=== PATIENT | male | born 1945 | race Caucasian/White ===

== ENCOUNTER 2020-11-04 16:03 | Observation (INO) | payer OTHER, SELFPAY ==
[2020-11-04] VITALS (49 sets, daily range): BP systolic 118–155; BP diastolic 63–111; PULSE 81–89; RESP 16–23; TEMP 36.6; O2SAT 91–99
--- NOTE | ~2020-11-04 | XR_ITS ---
EXAMINATION: XR chest 2V DATE: 11/04/2020 16:28 INDICATION: 2 days of left-sided chest pain TECHNIQUE: frontal and lateral views of the chest were obtained. COMPARISON: None FINDINGS: Mild elevation of the right hemidiaphragm. Subtle patchy airspace opacity in the right midlung zone a nd at the lingula. Calcified right lower lobe nodule consistent with old granulomatous disease. No pl eural effusion or pneumothorax. Cardiomegaly with coronary artery stenting. There are bridging osteop hytes at multiple levels in the spine, consistent with diffuse idiopathic skeletal hyperostosis (DISH ). IMPRESSION: 1. Mild opacities at the lingula and right midlung zone which could represent atelectasis or pneumoni a. 2. Cardiomegaly with likely coronary artery stenting. Reviewed, dictated and finalized at location A. IMPRESSION: 1. Mild opacities at the lingula and right midlung zone which could represent a telectasis or pneumonia. 2. Cardiomegaly with likely coronary artery stenting.
--- NOTE | ~2020-11-04 | US_ITS ---
EXAMINATION: US abdomen limited DATE: 11/05/2020 10:00 INDICATION: Epigastric abdominal pain TECHNIQUE: Multiple grayscale and Doppler ultrasound images of the abdomen were obtained. COMPARISON: CT from yesterday FINDINGS: Bowel gas obscures visualization of the pancreas. The liver is normal with normal echogenic ity and echotexture. No surface nodularity. Normal hepatopetal flow in the main portal vein. The gall bladder is normal with no abnormal wall thickening, pericholecystic fluid or stones. The common bile duct is not demonstrated but was normal on the comparison CT. There was no sonographic Zimmerman sign. IMPRESSION: 1. Normal sonographic study of the gallbladder. Reviewed, dictated and finalized at location B.
--- NOTE | ~2020-11-04 | CT_ITS ---
EXAMINATION: CT abdomen pelvis wo con DATE: 11/04/2020 21:24 INDICATION: Epigastric pain. Leukocytosis. TECHNIQUE: Computed tomography (CT) of the abdomen and pelvis was performed without intravenous contr ast. Automated exposure control and iterative reconstruction technique were employed. The dose-length product was 1254.02 mGy-cm. COMPARISON: None FINDINGS: Calcified right lower lobe nodule consistent with old granulomatous disease. Mild bronchiectatic muñoz ges and mild atelectasis in bilateral lower lungs. No pleural effusion. Heart size is normal. Atheros clerotic coronary artery calcifications. Small pericardial effusion. A few calcified lower mediastina l lymph nodes consistent with old granulomatous disease. Mild diffuse hepatic steatosis with focal sp aring along the gallbladder fossa. Gallbladder, spleen, pancreas, bilateral adrenal glands and right kidney are normal. 1.9 cm exophytic left renal cyst. Bladder is normal. Mild prostatomegaly. There ar e few sigmoid diverticula without adjacent inflammatory change to suggest diverticulitis. Small bowel and appendix are normal. No free intraperitoneal gas or fluid. No pathologically enlarged abdominal or pelvic lymphadenopathy. There is calcified atherosclerosis of the aorta and many of the other irwin brandy. There are bridging osteophytes at multiple levels in the lower thoracic spine, consistent with diffuse idiopathic skeletal hyperostosis (DISH). Mild lumbar dextrocurvature with mild spondylosis. IMPRESSION: 1. Small pericardial effusion. 2. Diffuse hepatic steatosis. 3. Mild bronchiectatic changes and mild atelectasis at the bilateral lower lungs. Reviewed, dictated and finalized at location A. IMPRESSION: 1. Small pericardial effusion. 2. Diffuse hepatic steatosis. 3. Mild bronchiectatic changes and mild atelectasis at the bilateral lower lung s.
--- NOTE | 2020-11-04 16:11 | ECG_ITS ---
Measurements Intervals [place] Rate: 80 P: 47 [place]: 205 QRS: -50 QRSD: 154 T: 38 QT: 379 QTc: 438 Interpretive Statements SINUS RHYTHM LEFT AXIS DEVIATION BORDERLINE AV CONDUCTION DELAY IVCD, CONSIDER ATYPICAL LBBB ABNORMAL ECG Electronically Signed On 11-04-2020 16:50:06 CDT by Adam Escalera D.O.
[2020-11-04 16:31] LABS: Basophils Absolute Auto 0.1 K/mm3 (0.0-0.1); Basophils Percent Auto 0.5 % (0.2-1.2); Eosinophils Absolute Auto 0.4 K/mm3 (0-0.3); Hematocrit 40.6 % (42.0-52.0); Hemoglobin 12.6 g/dL (14.0-18.0); Immature Granulocyte Absolute 0.13 K/mm3 (0.00-0.031); Immature Granulocyte Percent A 0.7 % (0-0.5); Lymphocytes Absolute Auto 2.06 K/mm3 (0.9-3.2); Lymphocytes Percent Auto 10.8 % (18.3-44.2); Mean Corpuscular Hemoglobin 28.3 pg (26-34); Mean Platelet Volume 11.7 fl (7.4-10.4); Monocytes Absolute Auto 1.2 K/mm3 (0.1-0.6); Neutrophils Absolute Auto 15.2 K/mm3 (1.3-6.7); Platelet Count Result 389 k/mm3 (150-375); Red Blood Count 4.46 M/mm3 (4.6-6.20); Red Cell Distribution Width 14.6 % (11.5-14.5); White Blood Count 19.1 K/mm3 (4.5-10.0)
[2020-11-04 17:28] LABS: INR 0.9; Prothrombin Time 12.5 Seconds (11.1-14.7)
[2020-11-04 17:29] LABS: Anion Gap 11 mmol/L (8-16); Blood Urea Nitrogen 43 mg/dL (9-20); Calcium 9.3 mg/dL (8.4-10.2); Carbon Dioxide 27 mmol/L (22-30); Chloride 96 mmol/L (98-107); Estimated CRCL calculation 32 ml/min; Estimated Glomerular Filt Rate 31; Glucose 308 mg/dL (65-110); Partial Thromboplastin Time 35.8 SECONDS (22.3-36.8); Potassium 5.2 mmol/L (3.4-5.0); Sodium 134 mmol/L (137-145)
[2020-11-04 17:41] LABS: Troponin I < 0.012 ng/mL (0.000-0.034)
--- NOTE | 2020-11-04 18:22 | PC.NURSE ---
Called lab and spoke to Marty about adding Hepatic Lip 1820
[2020-11-04 18:32] LABS: Alanine Aminotransferase 35 U/L (4-50); Albumin Level 4.3 g/dL (3.5-5.1); Alkaline Phosphatase 97 U/L (38-126); Aspartate Amino Transferase 53 U/L (17-59); Bilirubin,Total 0.3 mg/dL (0.2-1.3); Lipase 99 U/L (23-300)
--- NOTE | 2020-11-04 18:44 | ED.CHESTPAIN ---
HPI - Chest Pain General Chief Complaint: Chest Pain <Adiel Martin MD - Last Filed: 11/04/20 21:27> Stated Complaint: CP <Adiel Martin MD - Last Filed: 11/04/20 21:27> Time Seen by Provider: 11/04/20 16:29 <Adiel Martin MD - Last Filed: 11/04/20 21:27> Source: patient <Adiel Martin MD - Last Filed: 11/04/20 21:27> Mode of arrival: ambulatory <Adiel Martin MD - Last Filed: 11/04/20 21:27> Limitations: no limitations <Adiel Martin MD - Last Filed: 11/04/20 21:27> History of Present Illness HPI narrative: 75-year-old male Patient does not have any lung disease that he knows of but says he has a history of fluid around his heart for which she is followed [facility] all of his medical care He is here today because of a 2-day history of of chest discomfort He notes the pain has been relatively constant since the onset yesterday morning, is in his lower chest, is worse and somewhat hinders him from taking deep breaths, and not particularly accompanied by any exertional worsening shortness of breath fever or cough He also does not complain of any GI symptoms such as nausea or vomiting <Adiel Martin MD - Last Filed: 11/04/20 21:27> Related Data Home Medications: Home Medications Medication Instructions Recorded Confirmed aspirin 81 mg PO DAILY 11/05/20 11/05/20 atorvastatin 80 mg PO DAILY 11/05/20 11/05/20 carvedilol 25 mg PO BID 11/05/20 11/05/20 cetirizine 10 mg PO DAILY 11/05/20 11/05/20 cholecalciferol (vitamin D3) 50 mcg PO DAILY 11/05/20 11/05/20 eplerenone 25 mg PO DAILY 11/05/20 11/05/20 furosemide 40 mg PO BID 11/05/20 11/05/20 insulin aspart U-100 [Novolog 5 unit SUBCUT TIDWM 11/05/20 11/05/20 U-100 Insulin aspart] insulin glargine 30 unit SUBCUT HS 11/05/20 11/05/20 losartan 100 mg PO DAILY 11/05/20 11/05/20 meloxicam 15 mg PO DAILY 11/05/20 11/05/20 mirtazapine 7.5 mg PO HS 11/05/20 11/05/20 multivit with min-folic acid 1 tablet PO DAILY 11/05/20 11/05/20 [Adult One Daily Multivitamin] nitroglycerin 0.4 mg SUBLINGUAL Q5M PRN 11/05/20 11/05/20 pantoprazole 40 mg PO QAM 11/05/20 11/05/20 ramelteon 8 mg PO HS 11/05/20 11/05/20 sertraline 100 mg PO DAILY 11/05/20 11/05/20 trospium 20 mg PO BID 11/05/20 11/05/20 zaleplon 15 mg PO HS 11/05/20 11/05/20 <Adiel Martin MD - Last Filed: 11/04/20 21:27> Allergies/Adverse Reactions: Allergies Allergy/AdvReac Type Severity Reaction Status Date / Time No Known Allergies Allergy Verified 11/04/20 16:13 <Adiel Martin MD - Last Filed: 11/04/20 21:27> Review of Systems Review of Systems: All systems reviewed & are unremarkable except as noted in HPI and below <Adiel Martin MD - Last Filed: 11/04/20 21:27> Constitutional: Constitutional: Reports no additional constitutional complaints, Denies chills, Denies fever(s) and Denies headache(s) <Adiel Martin MD - Last Filed: 11/04/20 21:27> Eyes: Eyes: Reports no additional eye complaints and Denies change in vision <Adiel Martin MD - Last Filed: 11/04/20 21:27> ENT: Denies headache(s) and Denies sore throat <Adiel Martin MD - Last Filed: 11/04/20 21:27> Cardiovascular: Cardiovascular: Reports chest pain, Denies radiating jaw, neck or arm pain and Denies dyspnea <Adiel Martin MD - Last Filed: 11/04/20 21:27> Respiratory: Respiratory: Denies cough and Reports dyspnea <Adiel Martin MD - Last Filed: 11/04/20 21:27> Gastrointestinal: Gastrointestinal: Denies abdominal pain, Denies diarrhea and Denies vomiting <Adiel Martin MD - Last Filed: 11/04/20 21:27> Genitourinary: Genitourinary: Denies dysuria and Denies urinary frequency <Adiel Martin MD - Last Filed: 11/04/20 21:27> Musculoskeletal: Musculoskeletal: Denies deformity, Denies arthralgias, Denies joint swelling and Denies numbness <Adiel Martin MD - Last Filed: 11/04/20 21:27> Integumentary/Breasts: Skin/Breast: Denies rash and De
--- NOTE | 2020-11-04 19:18 | PC.NURSE ---
assumed care at this time. Report from Vonnie FIGUEROA
[2020-11-04 19:57] LABS: Troponin I < 0.012 ng/mL (0.000-0.034)
[2020-11-04 21:18] LABS: Lactic Acid Reflex 1.2 mmol/L (0.7-2.1)
[2020-11-04 22:38] LABS: Add Urine Microscopic? YES; Appearance Urine Clear (Clear); Bilirubin Urine Negative (Negative); Blood Urine Negative (Negative); Color Urine Yellow (Yellow); Glucose Urine UA 1+ mg/dL (Negative); Ketones Urine Negative (Negative); Leukocyte Esterase Ur Negative LEU/UL (Negative); Mucus Urine Rare /lpf; Nitrate Urine Negative (Negative); Protein Urine Negative (Negative); RBC Urine 0-2 /hpf (0-2); Specific Grav Ur 1.018 (1.001-1.035); Urobilinogen Urine Negative mg/dL (<2.0); WBC Urine 0-3 /hpf
[2020-11-04 22:59] LABS: Troponin I < 0.012 ng/mL (0.000-0.034)
[2020-11-04 23:24] LABS: Glucose Point of Care 239 mg/dl (65-105)
[2020-11-05] VITALS (20 sets, daily range): BP systolic 103–148; BP diastolic 48–77; PULSE 72–88; RESP 12–20; TEMP 36.6–37.6; O2SAT 92–100; BMI 34.9
--- NOTE | 2020-11-05 00:40 | ADMGEN ---
This patient, Rambo Gonzales, was admitted to IMU Room 200-01. Patient/family oriented to hospital policies and general routines including ID bracelet, bed and alarms, visiting hours, pain management, procedures, bathroom and other care routines, personal items, smoking policy, room service/diet, and visiting hours. Information on how to activate the Rapid Response Team has been discussed. Patient/Family are encouraged to report perceived risks to care and to ask questions if they do not understand what they are told or what they should do.
--- NOTE | 2020-11-05 01:18 | PM.IMHP ---
H&P: HPI History of Present Illness Date/Time: 11/05/20 01:18 Chief Complaint: PAIN WITH DEEP INSPIRATION Narrative: THIS IS A 75-YEAR-OLD MALE WITH KNOWN SIGNIFICANT PAST MEDICAL HISTORY HOWEVER [facility] AND STATES THAT HE HAD SOME FLUID AROUND HIS HEART PRESUMABLY PERICARDIAL EFFUSION ALSO STATES THAT HE HAS MS. HE IS NOT ON ANY MEDICATIONS AT HOME. HE COMES IN TODAY DUE TO PAIN WITH DEEP INSPIRATION THE PAIN IS CONSTANT FOR THE LAST 2 DAYS OR SO NONRADIATING NOT RELATED TO FOOD INTAKE NO SHORTNESS OF BREATH OR COUGH OR SPUTUM PRODUCTION NO FEVERS NO RIGORS NO CHILLS NO PND OR ORTHOPNEA. PATIENT STATES THAT HE HAS HAD ORANGE AGENT EXPOSURE. NO LEG SWELLING NO CHEST PAIN ON EXERTION. NO LIGHTHEADEDNESS DIZZINESS NEAR-SYNCOPE OR SYNCOPE. NO DYSPEPSIA NO NAUSEA NO VOMITING NO ABDOMINAL PAIN NO DIARRHEA. PRELIMINARY WORKUP HAS BEEN SIGNIFICANT FOR WBC COUNT OF 19,000 A CHEST X-RAY WITH INFILTRATES. Review of Systems Review of Systems: PAIN WITH DEEP INSPIRATION Constitutional: Constitutional: Denies chills, Denies fatigue, Denies fever(s), Denies lethargy and Denies malaise Eyes: Eyes: Denies change in vision ENT: Denies dysphagia, Denies nasal congestion, Denies nasal discharge, Denies nasal obstruction and Denies odynophagia Cardiovascular: Cardiovascular: Denies chest pain, Denies chest pain at rest, Denies irregular heart rhythm, Denies claudication, Denies leg edema, Denies lightheadedness, Denies radiating jaw, neck or arm pain, Denies palpitations, Denies dyspnea, Denies orthopnea and Denies paroxysmal nocturnal dyspnea Respiratory: Respiratory: Denies cough, Reports pain on inspiration and Denies dyspnea Gastrointestinal: Gastrointestinal: Denies abdominal pain, Denies diarrhea, Denies nausea and Denies vomiting Genitourinary: Genitourinary: Reports no additional male genitourinary complaints Musculoskeletal: Musculoskeletal: Reports no additional musculoskeletal complaints Integumentary/Breasts: Skin/Breast: Reports system reviewed and no additional complaints, except as docu Neurologic: Reports system reviewed and no additional complaints, except as documented Psychiatric: Psychiatric: Reports no additional psychiatric complaints Endocrine: Endocrine: Reports no additional endocrine complaints Hematologic/Lymphatic: Hematologic/Lymphatic: Reports no additional hematologic/lymphatic complaints Allergic/Immunologic: Allergic/Immunologic: Reports no additional allergic/immunologic complaints [facility] Family History Family History (Updated 11/05/20 @ 00:59 by Rhona Whelan RN) Grandparent No problems noted. 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) Meds Home Medications and Allergies Home Medications Medication Instructions Recorded Confirmed Type Unable to Obtain Home Medications 11/04/20 11/04/20 History Allergies Allergy/AdvReac Type Severity Reaction Status Date / Time No Known Allergies Allergy Verified 11/04/20 16:13 Vital Signs Vital Signs - 24 hr 11/04/20 16:05 11/04/20 17:11 11/04/20 17:15 Temperature 97.9 F Pulse Rate 81 Respiratory Rate 22 H Blood Pressure 131/75 Pulse Oximetry 98 97 97 11/04/20 17:32 11/04/20 17:33 11/04/20 17:45 Temperature Pulse Rate Respiratory Rate Blood Pressure 155/78 H Pulse Oximetry 96 99 97 11/04/20 17:46 11/04/20 18:00 11/04/20 18:01 Temperature Pulse Rate 81 Respiratory Rate 18 Blood Pressure 132/72 118/69 Pulse Oximetry 98 98 97 11/04/20 18:26 11/04/20 18:30 11/04/20
[2020-11-05] MEDS: ALBUTEROL SULFATE NEB 2.5 MG/0.5 ML INH (01:44)
--- NOTE | 2020-11-05 01:56 | PC.NURSE ---
Consent for release of records signed per patient and [facility] to [facility].
[2020-11-05 03:38] LABS: Basophils Absolute Auto 0.1 K/mm3 (0.0-0.1); Basophils Percent Auto 0.6 % (0.2-1.2); Eosinophils Absolute Auto 0.4 K/mm3 (0-0.3); Eosinophils Percent Auto 2.3 % (0-4.4); Hematocrit 41.4 % (42.0-52.0); Hemoglobin 12.7 g/dL (14.0-18.0); Immature Granulocyte Absolute 0.13 K/mm3 (0.00-0.031); Immature Granulocyte Percent A 0.8 % (0-0.5); Lymphocytes Percent Auto 15.6 % (18.3-44.2); Mean Corpuscular HGB Conc 30.7 g/dl (32-36); Mean Corpuscular Hemoglobin 28.1 pg (26-34); Mean Corpuscular Volume 91.6 fl (80-100); Monocytes Absolute Auto 1.3 K/mm3 (0.1-0.6); Monocytes Percent Auto 7.4 % (2.6-8.5); Neutrophils Absolute Auto 12.7 K/mm3 (1.3-6.7); Neutrophils Percent Auto 73.3 % (45.5-73.1); Platelet Count Result 388 k/mm3 (150-375); Red Blood Count 4.52 M/mm3 (4.6-6.20); Red Cell Distribution Width 14.2 % (11.5-14.5); White Blood Count 17.3 K/mm3 (4.5-10.0)
[2020-11-05 03:55] LABS: Alanine Aminotransferase 30 U/L (4-50); Alkaline Phosphatase 99 U/L (38-126); Anion Gap 12 mmol/L (8-16); Aspartate Amino Transferase 36 U/L (17-59); Bilirubin,Total 0.4 mg/dL (0.2-1.3); Blood Urea Nitrogen 37 mg/dL (9-20); Calcium 9.2 mg/dL (8.4-10.2); Carbon Dioxide 25 mmol/L (22-30); Chloride 97 mmol/L (98-107); Estimated CRCL calculation 38 ml/min; Estimated Glomerular Filt Rate 40; Glucose 223 mg/dL (65-110); Potassium 4.4 mmol/L (3.4-5.0); Sodium 134 mmol/L (137-145)
--- NOTE | 2020-11-05 04:10 | PCRCNOTE ---
Window of time for administration has passed. See next scheduled administration.
[2020-11-05 08:00] LABS: Glucose Point of Care 263 mg/dl (65-105)
[2020-11-05] MEDS: ALBUTEROL SULFATE NEB 2.5 MG/0.5 ML INH INHALATION ×2 (09:34→14:06)
[2020-11-05] MEDS: CHOLECALCIFEROL 1,000 UNITS TABLET 2000 UNITS PO (09:53)
[2020-11-05] MEDS: ATORVASTATIN 40 MG TABLET 80 MG PO (09:53)
[2020-11-05] MEDS: ENOXAPARIN 40 MG/0.4 ML SYRINGE SUB-Q (09:53)
[2020-11-05] MEDS: LOSARTAN POTASSIUM 100 MG TABLET PO (09:53)
[2020-11-05] MEDS: THERAPEUTIC MULTIVITAMINS/MINERALS TAB (*BKC) 1 TABLET PO (09:53)
[2020-11-05] MEDS: FUROSEMIDE 40 MG TABLET PO ×2 (09:53→16:02)
[2020-11-05] MEDS: PANTOPRAZOLE 40 MG TABLET PO (09:54)
[2020-11-05] MEDS: LORATADINE 10 MG TABLET PO (09:54)
[2020-11-05] MEDS: carvediloL 25 MG TABLET PO ×2 (09:54→16:02)
[2020-11-05] MEDS: MELOXICAM 7.5 MG TABLET 15 MG PO (09:54)
[2020-11-05] MEDS: SERTRALINE HCL 50 MG TABLET 100 MG PO (09:54)
[2020-11-05] MEDS: ASPIRIN 81 MG CHEWABLE TABLET PO (09:56)
[2020-11-05] MEDS: INSULIN ASPART (*BKC) 100 UNITS/ML SUB-Q ×4 (09:57→15:57)
[2020-11-05 12:39] LABS: Glucose Point of Care 351 mg/dl (65-105)
--- NOTE | 2020-11-05 13:34 | PM.IMPN ---
Progress Note: A&P Assessment and Plan (1) Community acquired pneumonia: Qualifiers: Laterality: right Lung location: middle lobe of lung Qualified Code(s): J18.9 - Pneumonia, unspecified organism Code(s): J18.9 - Pneumonia, unspecified organism Status: Acute Assessment and Plan: -infiltrates on chest x-ray -antibiotics: Rocephin, azithromycin -Zofran for nausea -for atelectasis will have incentive spirometer (2) Chest pain: Qualifiers: Chest pain type: precordial pain Qualified Code(s): R07.2 - Precordial pain Code(s): R07.9 - Chest pain, unspecified Status: Acute Assessment and Plan: -appears to have resolved spontaneously, stopping morphine and nitroglycerin. Troponins x3 negative, no EKG changes. EKG normal sinus rhythm -nonspecific abdominal symptoms which have resolved, negative gallbladder ultrasound -CT abdomen showed small pericardial effusion and fatty liver with atelectatic changes in bilateral lower lungs (3) Pericardial effusion: Code(s): I31.3 - Pericardial effusion (noninflammatory) Status: Acute Assessment and Plan: -chronic stable pericardial effusion, EKG did not appear to be pericarditis -Continue home meloxicam (4) Acute kidney injury: Code(s): N17.9 - Acute kidney failure, unspecified Status: Acute Assessment and Plan: Elevated creatinine 1.7, will follow-up trend, may be prerenal at this time (5) Type 2 diabetes mellitus with hyperglycemia: Code(s): E11.65 - Type 2 diabetes mellitus with hyperglycemia Status: Acute Assessment and Plan: -diabetic diet -glargine 30 units q.h.s., aspart 5 units a.c. sliding scale insulin, hypoglycemia protocol, Accu-Cheks a.c. HS Additional Plan # other chronic conditions -can hold home sleep aids -depression: Continue Zoloft, Remeron -claritin -hypertension: Cozaar Diet: Diabetic diet DVT prophylaxis: Lovenox GI prophylaxis: Protonix Code status: Do not resuscitate Disposition: Transfer to Medical floor, home in 1-2 days Time Spent With Patient Time with patient: 25 - 35 minutes Subjective Date/time seen: 11/05/20 13:34 patient examined. With significant leukocytosis and chest infiltrates on x-ray he has been treated for pneumonia. This is despite being afebrile and no sputum production. He does not have many complaints and is very nonspecific. At this time this may be just a pneumonia which is how we will treat it. With his history of pericardial effusion he was brought to the IMU for further evaluation. His troponins have been negative and his symptoms are improving significantly. No EKG changes for pericarditis, appears to be normal sinus rhythm. Patient will be transferred to medical floor for continue management of his pneumonia. He denies fever, chills, nausea, vomiting, diarrhea, chest pain, abdominal pain. Review of Systems Review of Systems: All systems reviewed & are unremarkable except as noted in HPI and below Exam Narrative: - GENERAL: Well-nourished pleasant elderly man in no acute distress. - EYES: EOMI. Anicteric. - HENT: Moist mucous membranes. - LUNGS: Clear to auscultation bilaterally, no wheezing, rhonchi, or rales. - CARDIOVASCULAR: Regular rate and rhythm. No murmur. No JVD. - ABDOMEN: Soft, non-tender and non-distended. No palpable masses. - EXTREMITIES: No edema. Peripheral pulses 2+. Non-tender. - NEUROLOGIC: No focal neurological deficits. CN II-XII grossly intact. - PSYCHIATRIC: Awake, Alert and oriented x 3. Appropriate mood and affect. - SKIN: No rashes or lesions. Warm. - LYMPH: No cervical lymphadenopathy. Objective Data Vital Signs Vital Signs: Vital Signs - 24 hr 11/04/20 16:05 11/04/20 17:11 11/04/20 17:15 Temperature 36.6 C Pulse Rate 81 Respiratory Rate 22 H Blood Pressure 131/75 Pulse Oximetry 98 97 97 11/04/20 17:32 11/04/20 17:33 11/04/20 17:45 Temperature Puls
[2020-11-05 17:29] LABS: Glucose Point of Care 328 mg/dl (65-105)
--- NOTE | 2020-11-05 17:48 | PC.NURSE ---
This patient, Rambo Wood, was received from IMU on 11/05/20 at 1735. Report received from Nhung FIGUEROA Patient/family oriented to unit policies and routines
--- NOTE | 2020-11-05 18:31 | PC.NURSE ---
This patient, Rambo Wood, was transferred to [facility] on 11/05/20 at 1730. Personal belongings sent with patient. Report given to CAROLINA Scott. Appropriate documentation sent with patient.
[2020-11-05] MEDS: MIRTAZAPINE 7.5 MG TABLET PO (20:58)
[2020-11-05] MEDS: INSULIN GLARGINE (*BKC) 100 UNITS/ML 30 UNITS SUB-Q (20:58)
[2020-11-05 21:32] LABS: Glucose Point of Care 316 mg/dl (65-105)
[2020-11-06] VITALS (9 sets, daily range): BP systolic 110–134; BP diastolic 56–71; PULSE 70–84; RESP 18–20; TEMP 36.6–37.1; O2SAT 92–97
[2020-11-06] MEDS: ALBUTEROL SULFATE NEB 2.5 MG/0.5 ML INH INHALATION ×3 (02:20→15:24)
[2020-11-06 05:37] LABS: Hemoglobin 11.7 g/dL (14.0-18.0); Mean Corpuscular HGB Conc 30.8 g/dl (32-36); Mean Corpuscular Hemoglobin 28.5 pg (26-34); Mean Corpuscular Volume 92.5 fl (80-100); Mean Platelet Volume 10.6 fl (7.4-10.4); Platelet Count Result 339 k/mm3 (150-375); Red Blood Count 4.11 M/mm3 (4.6-6.20); Red Cell Distribution Width 14.3 % (11.5-14.5); White Blood Count 14.7 K/mm3 (4.5-10.0)
[2020-11-06 05:49] LABS: Anion Gap 8 mmol/L (8-16); Blood Urea Nitrogen 43 mg/dL (9-20); Calcium 8.8 mg/dL (8.4-10.2); Carbon Dioxide 26 mmol/L (22-30); Chloride 101 mmol/L (98-107); Estimated CRCL calculation 36 ml/min; Estimated Glomerular Filt Rate 37; Glucose 322 mg/dL (65-110); Potassium 4.7 mmol/L (3.4-5.0); Sodium 135 mmol/L (137-145)
[2020-11-06 09:03] LABS: Glucose Point of Care 281 mg/dl (65-105)
[2020-11-06] MEDS: ATORVASTATIN 40 MG TABLET 80 MG PO (09:06)
[2020-11-06] MEDS: MELOXICAM 7.5 MG TABLET 15 MG PO (09:06)
[2020-11-06] MEDS: SERTRALINE HCL 50 MG TABLET 100 MG PO (09:06)
[2020-11-06] MEDS: THERAPEUTIC MULTIVITAMINS/MINERALS TAB (*BKC) 1 TABLET PO (09:06)
[2020-11-06] MEDS: CHOLECALCIFEROL 1,000 UNITS TABLET 2000 UNITS PO (09:07)
[2020-11-06] MEDS: carvediloL 25 MG TABLET PO (09:07)
[2020-11-06] MEDS: FUROSEMIDE 40 MG TABLET PO (09:07)
[2020-11-06] MEDS: PANTOPRAZOLE 40 MG TABLET PO (09:07)
[2020-11-06] MEDS: LOSARTAN POTASSIUM 100 MG TABLET PO (09:07)
[2020-11-06] MEDS: LORATADINE 10 MG TABLET PO (09:07)
[2020-11-06] MEDS: ENOXAPARIN 40 MG/0.4 ML SYRINGE SUB-Q (09:07)
[2020-11-06] MEDS: INSULIN ASPART (*BKC) 100 UNITS/ML SUB-Q ×2 (09:08→13:44)
[2020-11-06 09:09] LABS: Erythrocyte Sedimentation Rate 83 mm/hr (0-20)
[2020-11-06] MEDS: ASPIRIN 81 MG CHEWABLE TABLET PO (12:48)
[2020-11-06 13:38] LABS: Glucose Point of Care 275 mg/dl (65-105)
--- NOTE | 2020-11-06 15:53 | PM.DS ---
DS: Admitting Diagnosis Admitting Diagnosis Community-acquired pneumonia DS: Discharge Diagnosis Discharge Diagnosis (1) Type 2 diabetes mellitus with hyperglycemia: Qualifiers: Diabetes mellitus jail insulin use: unspecified jail insulin use status Qualified Code(s): E11.65 - Type 2 diabetes mellitus with hyperglycemia Code(s): E11.65 - Type 2 diabetes mellitus with hyperglycemia Status: Acute (2) Acute kidney injury: Code(s): N17.9 - Acute kidney failure, unspecified Status: Acute (3) Community acquired pneumonia: Qualifiers: Laterality: right Lung location: middle lobe of lung Qualified Code(s): J18.9 - Pneumonia, unspecified organism Code(s): J18.9 - Pneumonia, unspecified organism Status: Acute (4) Chest pain: Qualifiers: Chest pain type: precordial pain Qualified Code(s): R07.2 - Precordial pain Code(s): R07.9 - Chest pain, unspecified Status: Acute (5) Pericardial effusion: Code(s): I31.3 - Pericardial effusion (noninflammatory) Status: Acute (6) Leukocytosis: Qualifiers: Leukocytosis type: unspecified Qualified Code(s): D72.829 - Elevated white blood cell count, unspecified Code(s): D72.829 - Elevated white blood cell count, unspecified Status: Acute (7) Anemia: Qualifiers: Anemia type: iron deficiency Iron deficiency anemia type: other iron deficiency Qualified Code(s): D50.8 - Other iron deficiency anemias Code(s): D64.9 - Anemia, unspecified Status: Acute (8) Hyponatremia: Code(s): E87.1 - Hypo-osmolality and hyponatremia Status: Acute (9) Pericardial effusion: Code(s): I31.3 - Pericardial effusion (noninflammatory) Status: Resolved DS: Summary Hospital Course Reason for hospitalization: PNEUMONIA Hospital Course: 75-year-old male with past medical history significant for type 2 diabetes, hypertension and hyperlipidemia presented with complaints of pain with deep inspiration and was managed as a case of community-acquired pneumonia. Chest x-ray was done which revealed infiltrates and WBC count was found to be 19,000. He was started on IV ceftriaxone and azithromycin. Any continued to improve. He was also noted to have TED on CKD. Which improved after fluids few he continued to improve and leukocytosis was noted to be down trending. He is now being discharged in stable condition on p.o. antibiotics. Time Spent with Patient Time attestation: Total time spent providing and/or coordinating discharge services:35MINUTES Exam Const: General: cooperative HENMT: Head: normal to inspection General nose exam: Normal external nose present Eyes: General: appearance normal, both eyes and all related structures Chest: Chest palpation & inspection: normal inspection of the chest Resp: Auscultation: clear to auscultation bilaterally Cardio: Jugular venous distension: no JVD Palpation: normal PMI Rate: regular rate Rhythm: regular rhythm GI: Inspection: normal to inspection Auscultation: normal bowel sounds Back/Spine/Pelvis: Back: no CVA tenderness Skin: General skin exam: normal color Neuro: General: patient oriented x3 Extrem: General: normal to inspection Right lower extremity: normal to inspection Psych: Appearance: grossly normal DS: Data Data Completed and Pending Labs on day of discharge: Labs from last 24 hours 11/06/20 11/06/20 11/06/20 13:27 08:58 05:23 WBC RBC Hgb Hct MCV MCH MCHC RDW Plt Count MPV ESR Sodium Potassium Chloride Carbon Dioxide Anion Gap BUN Creatinine Estim Creat Clear Calc Estimated GFR Glucose POC Capillary Glucose 275 H 281 H Calcium Magnesium C-Reactive Protein 17.0 H 11/06/20 11/06/20 11/06/20 05:23 05:23 05:23 WBC 14.7 H RBC 4.11 L Hgb 11.7 L Hct 38
== END 2020-11-06 16:53 | disposition home or self-care (01) ==
LOC: ANHED 22:38 → ANHIMU 11-05 00:10 → ANH2MED 11-05 18:05
PROVIDERS: Emergency Medicine; Student in an Organized Health Care Education/Training Program; Admitting Provider Internal Medicine; Emergency Provider General Practice; Visit Provider Internal Medicine
DX: E11.65 Type 2 diabetes mellitus with hyperglycemia (principal); J18.9 Pneumonia, unspecified organism; R07.9 Chest pain, unspecified; N17.9 Acute kidney failure, unspecified; I31.3 Pericardial effusion (noninflammatory); D64.9 Anemia, unspecified; E87.1 Hypo-osmolality and hyponatremia; D72.829 Elevated white blood cell count, unspecified; Z79.4 Long term (current) use of insulin; Z79.82 Long term (current) use of aspirin; Z87.891 Personal history of nicotine dependence
CPT/HCPCS: 36415; 71046; 74176; 76705; 80048; 80053; 80076; 81001; 82948; 83605; 83690; 83735; 84145; 84484; 85025; 85027; 85380; 85610; 85652; 85730; 86140; 87040; 93005; 94640; 96365; 96368; 96372; 96375; 96376; 99285; A9270; G0378; J0456; J0696; J1650; J1815

== ENCOUNTER 2021-03-24 11:59 | Emergency (ER) | payer OTHER, SELFPAY ==
[2021-03-24] VITALS (20 sets, daily range): BP systolic 132–175; BP diastolic 63–126; PULSE 86–98; RESP 18–31; TEMP 36.8; O2SAT 91–98
--- NOTE | ~2021-03-24 | XR_ITS ---
EXAMINATION: XR hip LT 2V w AP pelvis DATE: 03/24/2021 12:52 INDICATION: Left hip pain post fall TECHNIQUE: Anteroposterior view of the pelvis and anteroposterior and frog-leg lateral views of the l eft hip were obtained. COMPARISON: CT dated 11/04/2020 FINDINGS: Alignment is normal. No fracture. Bilateral hip joint spaces are normal. Moderate lower lumbar facet osteoarthritis. Right-sided L5 pars and articular is defects seen on prior CT is occult on the curren t radiographs. IMPRESSION: 1. No acute osseous abnormality. Reviewed, dictated and finalized at location [facility]. [facility] [employer]
--- NOTE | 2021-03-24 12:38 | ED.GENADULT ---
HPI - General Adult General Chief complaint: Extremity Injury, Lower Stated complaint: fall - no pulse felt in foot Time Seen by Provider: 03/24/21 12:25 History of Present Illness HPI narrative: 75-year-old male presenting to the emergency department after having a fall from bed today. Patient does have a history of MS and states that his current bed is too high from the ground causing him to have difficulty getting in and out of the bed. Patient states he has frequent falls all associated with getting out of bed. Patient states he had a fall yesterday and was on the floor for approximately 12 hours. Patient states he fell out of his bed this morning and was on ground for approximately 10 hours. Patient denies striking his head denies any loss of consciousness. Patient denies any other pain or injury. Patient states he does have increased generalized weakness but feels strong enough to go home Related Data Home Medications Medication Instructions Recorded Confirmed Adult One Daily Multivitamin 1 tablet PO DAILY 11/05/20 11/05/20 aspirin 81 mg PO DAILY 11/05/20 11/05/20 atorvastatin 80 mg PO DAILY 11/05/20 11/05/20 carvedilol 25 mg PO BID 11/05/20 11/05/20 cetirizine 10 mg PO DAILY 11/05/20 11/05/20 cholecalciferol (vitamin D3) 50 mcg PO DAILY 11/05/20 11/05/20 eplerenone 25 mg PO DAILY 11/05/20 11/05/20 furosemide 40 mg PO BID 11/05/20 11/05/20 insulin aspart U-100 [Novolog 5 unit SUBCUT TIDWM 11/05/20 11/05/20 U-100 Insulin aspart] insulin glargine 30 unit SUBCUT HS 11/05/20 11/05/20 losartan 100 mg PO DAILY 11/05/20 11/05/20 mirtazapine 7.5 mg PO HS 11/05/20 11/05/20 nitroglycerin 0.4 mg SUBLINGUAL Q5M PRN 11/05/20 11/05/20 pantoprazole 40 mg PO QAM 11/05/20 11/05/20 ramelteon 8 mg PO HS 11/05/20 11/05/20 sertraline 100 mg PO DAILY 11/05/20 11/05/20 trospium 20 mg PO BID 11/05/20 11/05/20 zaleplon 15 mg PO HS 11/05/20 11/05/20 Allergies Allergy/AdvReac Type Severity Reaction Status Date / Time No Known Allergies Allergy Verified 11/04/20 16:13 Review of Systems Review of Systems: CONSTITUTIONAL: Denies fever, chills, or sweats. EYES: Denies visual changes, redness, or discharge. ENT: Denies rhinorrhea, congestion, sore throat, or otalgia. CARDIOVASCULAR: Denies chest pain, palpitations, or edema. RESPIRATORY: Denies cough or dyspnea. GASTROINTESTINAL: Denies abdominal pain, nausea, vomiting, or diarrhea. GENITOURINARY: Denies dysuria or hematuria. SKIN: Denies rash or itching. MUSCULOSKELETAL: Left hip pain NEUROLOGIC: Denies headache, numbness, or weakness. PSYCHIATRIC: Denies anxiety or depression. [facility], LAT[facility] Family History Family History (Updated 11/05/20 @ 00:59 by Rhona Whelan RN) Grandparent No problems noted. Father Lung cancer Mother Hypertension Social History Social History Smoking packs per day: 1.5 Smoking cigarettes per day: 30.0 Years smoked: 5 Smoking pack-years: 7.50 Smoking status: Former smoker Tobacco type: cigarettes Smoking end date: 03/29/74 Alcohol intake: former Substance use: never Spiritual care concerns: Yes (Would like to see authorization representative while here) Exam Narrative: APPEARANCE: Well appearing, no pain in distress, well-nourished. Head normocephalic atraumatic. EYES: PERRLA/EOMI, conjunctivae very clear. NECK: Supple. No adenopathy, no masses. RESPIRATORY: Airway patent, respirations nonlabored. Clear to auscultation bilaterally, no rales, rhonchi, wheezing. CARDIOVASCULAR: Regular rate and rhythm without murmurs rubs or gallops. ABDOMINAL: Soft, nontender, nondistended, no hepatosplenomegally MUSCULOSKELETAl: Moves all extremities. Strenght/ROM intact, No edema, No calf tenderness. Some left hip tenderness to lateral palpation. Normal range of motion. No ecchymosis or deformity. NEURO: Alert. Cranial nerves II through XII intact. Good gait. Good coordination SKIN: Warm, dry. Normal Color PSYCHIATRIC
[2021-03-24 13:06] LABS: Basophils Absolute Auto 0.1 K/mm3 (0.0-0.1); Basophils Percent Auto 0.5 % (0.2-1.2); Eosinophils Absolute Auto 0.3 K/mm3 (0-0.3); Eosinophils Percent Auto 1.7 % (0-4.4); Hemoglobin 14.7 g/dL (14.0-18.0); Immature Granulocyte Absolute 0.08 K/mm3 (0.00-0.031); Immature Granulocyte Percent A 0.5 % (0-0.5); Lymphocytes Absolute Auto 1.61 K/mm3 (0.9-3.2); Lymphocytes Percent Auto 10.8 % (18.3-44.2); Mean Corpuscular Hemoglobin 28.3 pg (26-34); Mean Corpuscular Volume 88.5 fl (80-100); Mean Platelet Volume 11.1 fl (7.4-10.4); Monocytes Absolute Auto 0.8 K/mm3 (0.1-0.6); Monocytes Percent Auto 5.2 % (2.6-8.5); Neutrophils Absolute Auto 12.1 K/mm3 (1.3-6.7); Neutrophils Percent Auto 81.3 % (45.5-73.1); Platelet Count Result 298 k/mm3 (150-375); Red Cell Distribution Width 16.2 % (11.5-14.5); White Blood Count 14.9 K/mm3 (4.5-10.0)
[2021-03-24 13:19] LABS: Alanine Aminotransferase 46 U/L (4-50); Albumin Level 4.5 g/dL (3.5-5.1); Alkaline Phosphatase 113 U/L (38-126); Anion Gap 10 mmol/L (8-16); Aspartate Amino Transferase 51 U/L (17-59); Bilirubin,Total 0.6 mg/dL (0.2-1.3); Blood Urea Nitrogen 34 mg/dL (9-20); Calcium 9.5 mg/dL (8.4-10.2); Carbon Dioxide 26 mmol/L (22-30); Chloride 96 mmol/L (98-107); Creatine Kinase 405 U/L (55-170); Estimated CRCL calculation 43 ml/min; Estimated Glomerular Filt Rate 42; Glucose 276 mg/dL (65-110); Potassium 4.2 mmol/L (3.4-5.0); Sodium 132 mmol/L (137-145)
[2021-03-24] MEDS: SODIUM CHLORIDE 0.9% IV 1,000 ML 999 ML IV CONT (13:40)
--- NOTE | 2021-03-24 13:51 | PC.NURSE ---
When nurse goes to room to walk pt, he states he uses a scooter at home and hasn't walk in 1 1/2 years.
--- NOTE | 2021-03-24 14:35 | PC.NURSE ---
Stood at bedside with assist of 2. Pt unable to fully bear weight on his legs, states this is his normal due to MS.
== END 2021-03-24 16:03 | disposition home or self-care (01) ==
LOC: ANHED 14:09
PROVIDERS: Emergency Provider Emergency Medicine
DX: M25.552 Pain in left hip (principal); G35 Multiple sclerosis; W06.XXXA Fall from bed, initial encounter; R29.6 Repeated falls; Z91.81 History of falling; Z79.82 Long term (current) use of aspirin; Z79.4 Long term (current) use of insulin; Z87.891 Personal history of nicotine dependence
CPT/HCPCS: 36415; 73502; 80053; 82550; 85025; 96360; 99283; J7030